=== PATIENT | male | born 1970 ===

== ENCOUNTER 2018-11-28 06:31 | Observation (INO) | payer OTHER ==
[2018-11-28] MEDS ORDERED: Sodium Chloride 0.9% 1,000 ML IV ONE (07:16)
--- NOTE | 2018-11-28 07:19 | C.PDOC ---
History Of Present Illness 48 year old male presents to ED with complaints of painful mass near his rectum for the past 3 days. Patient states he has history of similar abscess and has had surgical drainage twice before at other hospital. The most recent surgery was 08/04/18 at [facility]. He denies any fever or drainage, bloody stools, incontinence. Time Seen by Provider: 11/28/18 07:09 Chief Complaint (Nursing): Abnormal Skin Integrity History Per: Patient History/Exam Limitations: no limitations Onset/Duration Of Symptoms: Days Current Symptoms Are (Timing): Still Present Severity: Moderate Past Medical History Reviewed: Historical Data, Nursing Documentation, Vital Signs Vital Signs: Last Vital Signs Temp 97.5 F L 11/28/18 06:42 Pulse 98 H 11/28/18 06:42 Resp 20 11/28/18 06:42 BP 129/81 11/28/18 06:42 Pulse Ox 95 11/28/18 06:42 - Medical History PMH: Diabetes Other Surgeries: Recta abscess I&D in OR 08/04/18 Family History: States: No Known Family Hx - Social History Hx Alcohol Use: No Hx Substance Use: No - Immunization History Hx Tetanus Toxoid Vaccination: No Hx Influenza Vaccination: No Hx Pneumococcal Vaccination: No Review Of Systems Except As Marked, All Systems Reviewed And Found Negative. Constitutional: Negative for: Fever, Chills Gastrointestinal: Positive for: Other (rectal mass ). Negative for: Nausea, Vom iting, Abdominal Pain, Melena, Hematochezia Genitourinary: Positive for: Other Physical Exam - Physical Exam Appears: Non-toxic, No Acute Distress Skin: Normal Color, Warm, Dry Head: Atraumatic, Normacephalic Eye(s): bilateral: Normal Inspection Nose: Normal Oral Mucosa: Moist Neck: Supple Chest: Symmetrical Cardiovascular: Rhythm Regular Respiratory: Normal Breath Sounds, No Rales, No Rhonchi, No Wheezing Gastrointestinal/Abdominal: Normal Exam, Soft, No Tenderness, No Guarding, No Rebound Rectal: Mass (4x3 cm tender erythematous indurated mass to left side of perineum radiates towards scrotum) Male Genital: No Testicular Tenderness, No Testicular Swelling Extremity: Normal ROM Neurological/Psych: Oriented x3, Normal Speech ED Course And Treatment - Laboratory Results Result Diagrams: 11/28/18 07:57 11/28/18 07:57 O2 Sat by Pulse Oximetry: 95 (RA) Pulse Ox Interpretation: Normal - CT Scan/US CT-Pelvis Other Rad Studies (CT/US): Read By Radiologist, Radiology Report Reviewed CT/US Interpretation: Date of service: 11/28/2018. PROCEDURE: CT pelvis with contrast. HISTORY: perirectal mass, r.o abscess. COMPARISON: None available. TECHNIQUE: 2.5 mm contiguous axial sections were acquired through the pelvis following intravenous contrast administration. Sagittal and coronal images were reformatted from the axial scan. Contrast administered: 100 mL Visipaque 320. Total exam DLP: 392.70 mGy-cm. This CT exam was performed using 1 or more of the following dose reduction techniques: Automated exposure control, adjustment of the mA and/or kV according to patient size, and/or use of iterative reconstruction technique. FINDINGS: There is an ovoid low-attenuation collection in the right proximal medial thigh and right perineum, measuring approximately 0.9 x 3.2 x 1.9 cm. Consistent with abscess. There is adjacent cutaneous thickening. Posterior to this, in the perineum/proximal medial right thigh, there is focal induration without evidence of liquefaction, surrounded by some hazy increased attenuation of the subcutaneous fat, consistent with cellulitis. No evidence of alexsander abscess in this location, at the time of this examination. No evidence of alexsander perianal abscess. No other collection identified. Evaluation within the pelvis demonstrates the urinary bladder to be unremarkable in appearance. A normal prostate is identified. No abnormal bowel loops are appreciated. A normal appendix is identified. There is no pelvic lymphadenopathy identified. There is no ascites. IMPRESSION: Low-attenuation fluid collection in the proximal medial right thigh and right perineum, 0.9 x 3.2 x 1.9 cm. Consistent with abscess. Surrounding cellulitis. Posterior to this in the perineum/proximal medial right thigh, there is focal induration which has not yet liquified and is not consistent with a drainable collection. No alexsander perianal abscess. No other significant abnormality. Medical Decision Making Medical Decision Making: Impression: Rectal Mass Plan: * Labs * UA * CT - Pelv. * Toradol IV * IV Fluids Progress: CT shows: Low-attenuation fluid collection in the proximal medial right thigh and right perineum, 0.9 x 3.2 x 1.9 cm. Consistent with abscess. Surrounding cellulitis. Posterior to this in the perineum/proximal medial right thigh, there is focal induration which has not yet liquified and is not consistent with a drainable collection. No alexsander perianal abscess. 1026 Page certified surgical tech/first assistant 1029 resident manager calls back and to evaluate patient in the ED. 1130 Per certified surgical tech/first assistant Dr Lopez case reviewed with Dr Guardado. Requests Admit to Medicine. Going to OR 1133 Page hospitalist [address] Adkins to discuss case and accepted admission Disposition Counseled Patient/Family Regarding: Diagnosis, Need For Followup - Disposition Disposition: HOSPITALIZED Disposition Time: 11:39 Condition: STABLE - POA Present On Arrival: None - Clinical Impression Clinical Impression: Abscess of perineum - PA / PUNCH HAND / Resident Statement MD/DO has reviewed & agrees with the documentation as recorded. - Scribe Statement The provider has reviewed the documentation as recorded by the Scribe Erasto Mcfarlane Provider Attestation All medical record entries made by the Scribe were at my direction and personally dictated by me. I have reviewed the chart and agree that the record accurately reflects my personal performance of the history, physical exam, medical decision making, and the department course for this patient. I have also personally directed, reviewed, and agree with the discharge instructions and disposition. Decision To Admit - Pt Status Changed To: Hospital Disposition Of: Observation - . Bed Request Type: Regular Admitting Physician: Mustapha Adkins Patient Diagnosis: Abscess of perineum
[2018-11-28] MEDS ORDERED: Sodium Chloride 0.9% 1,000 ML ONE (07:47)
[2018-11-28 08:06] LABS: BASO # 0.1 K/uL (0.0-0.2); BASO % 0.7 % (0.0-2.0); EOS # 0.9 K/uL (0.0-0.7); EOS % 10.9 % (0.0-4.0); HEMOGLOBIN 14.8 g/dL (12.0-18.0); LYMPH # 2.2 K/uL (1.0-4.3); MEAN CELL VOLUME 83.4 fL (80.0-94.0); MEAN CORPUSCULAR HEMOGLOBIN 28.1 pg (27.0-31.0); MEAN CORPUSCULAR HGB CONC 33.7 g/dL (33.0-37.0); MEAN PLATELET VOLUME 7.6 fL (7.2-11.7); MONO # 1.1 K/uL (0.0-0.8); MONO % 12.7 % (0.0-10.0); NEUT # 4.3 K/uL (1.8-7.0); NEUT % 49.7 % (50.0-75.0); RBC 5.26 Mil/uL (4.40-5.90); RED CELL DISTRIBUTION WIDTH 13.6 % (11.5-14.5); WHITE BLOOD COUNT 8.6 K/uL (4.8-10.8)
[2018-11-28 08:24] LABS: ALB/GLOB RATIO 1.4 (1.0-2.1); ALBUMIN 3.9 g/dL (3.5-5.0); ALT/SGPT 24 U/L (21-72); AST/SGOT 22 U/L (17-59); BLOOD UREA NITROGEN 13 mg/dL (9-20); CALCIUM 8.8 mg/dl (8.6-10.4); GFR NON-AFRICAN AMERICAN > 60; LIPASE 56 U/L (23-300)
[2018-11-28] MEDS ORDERED: Iodixanol 320 MG/ML 100 ML BOTTLE IV ONE (08:40)
[2018-11-28 08:45] LABS: URINE BILIRUBIN NEGATIVE (NEGATIVE); URINE BLOOD NEGATIVE (NEGATIVE); URINE CLARITY Clear (Clear); URINE COLOR Yellow (YELLOW); URINE GLUCOSE (UA) NORMAL (Normal); URINE LEUKOCYTE ESTERASE NEG Leu/uL (Negative); URINE PROTEIN NEGATIVE (NEGATIVE); URINE UROBILINOGEN NORMAL mg/dL (0.2-1.0)
--- NOTE | 2018-11-28 10:19 | CT ---
Date of service: 11/28/2018 PROCEDURE: CT pelvis with contrast HISTORY: perirectal mass, r.o abscess COMPARISON: None available TECHNIQUE: 2.5 mm contiguous axial sections were acquired through the pelvis following intravenous contrast administration. Sagittal and coronal images were reformatted from the axial scan. Contrast administered: 100 mL Visipaque 320. Total exam DLP: 392.70 mGy-cm. This CT exam was performed using 1 or more of the following dose reduction techniques: Automated exposure control, adjustment of the mA and/or kV according to patient size, and/or use of iterative reconstruction technique. FINDINGS: There is an ovoid low-attenuation collection in the right proximal medial thigh and right perineum, measuring approximately 0.9 x 3.2 x 1.9 cm. Consistent with abscess. There is adjacent cutaneous thickening. Posterior to this, in the perineum/proximal medial right thigh, there is focal induration without evidence of liquefaction, surrounded by some hazy increased attenuation of the subcutaneous fat, consistent with cellulitis. No evidence of alexsander abscess in this location, at the time of this examination. No evidence of alexsander perianal abscess. No other collection identified. Evaluation within the pelvis demonstrates the urinary bladder to be unremarkable in appearance. A normal prostate is identified. No abnormal bowel loops are appreciated. A normal appendix is identified. There is no pelvic lymphadenopathy identified. There is no ascites. IMPRESSION: Low-attenuation fluid collection in the proximal medial right thigh and right perineum, 0.9 x 3.2 x 1.9 cm. Consistent with abscess. Surrounding cellulitis. Posterior to this in the perineum/proximal medial right thigh, there is focal induration which has not yet liquified and is not consistent with a drainable collection. No alexsander perianal abscess. No other significant abnormality.
[2018-11-28] MEDS ORDERED: Piperacillin/Tazobact 3.375 gm 100 ML IV STA (11:38)
[2018-11-28] MEDS ORDERED: Vancomycin 1 GM 1 GM/250 ML BAG IV STA (11:38)
--- NOTE | 2018-11-28 11:48 | CP.PCM.CON ---
<John Villafuerte D - Last Filed: 11/28/18 13:22> History of Present Illness - History of Present Illness History of Present Illness: SURGERY CONSULT NOTE FOR DR. VALLE Reason: Perianal abscess 48M presents to ED for pain in perineal region. Patient states it began 3 days ago. He also noticed a bump at the same site in the right perianal region. He denies any fevers, chills, denies abdominal pain, nausea, vomiting. He denies any blood in stool. He denies any drainage from site of abscess. He has had two abscesses in the past at the same site which he had drained in the OR at [facility]. Last time patient ate was last night. PMH: DM PSH: I&D perianal abscess*2 Social: denies tobacco, alcohol, and illicit drug use Allergies: NKDA Past Patient History - Past Social History Smoking Status: Unknown If Ever Smoked - CARDIAC Hx Cardiac Disorders: No - PULMONARY Hx Respiratory Disorders: No - NEUROLOGICAL Hx Neurological Disorder: No - HEENT Hx HEENT Problems: No - RENAL Hx Chronic Kidney Disease: No - ENDOCRINE/METABOLIC Hx Endocrine Disorders: No Hx Diabetes Mellitus Type 1: Yes - HEMATOLOGICAL/ONCOLOGICAL Hx Blood Disorders: No - INTEGUMENTARY Hx Dermatological Problems: No - MUSCULOSKELETAL/RHEUMATOLOGICAL Hx Musculoskeletal Disorders: No - GASTROINTESTINAL Hx Gastrointestinal Disorders: No - GENITOURINARY/GYNECOLOGICAL Hx Genitourinary Disorders: No - PSYCHIATRIC Hx Substance Use: No - SURGICAL HISTORY Hx Surgeries: Yes Other/Comment: CLARITA RECTAL ABCESS X 3 TIMES - ANESTHESIA Hx Anesthesia: Yes Hx Anesthesia Reactions: No Meds Allergies/Adverse Reactions: Allergies Allergy/AdvReac Type Severity Reaction Status Date / Time No Known Allergies Allergy Unverified 11/28/18 06:54 - Medications Medications: Current Medications Piperacillin Sod/Tazobactam Sod (Zosyn 3.375 In Ns 100ml) 100 mls @ 200 mls/hr IV STAT STA; Protocol Stop: 11/28/18 12:07 Vancomycin HCl (Vancomycin 1gm In Normal Saline Addvantage) 1 gm in 250 mls @ 166.667 mls/hr IV STAT STA; Protocol Stop: 11/28/18 13:07 Physical Exam - Constitutional Appears: Non-toxic, No Acute Distress - Respiratory Exam Respiratory Exam: Clear to Auscultation Bilateral, NORMAL BREATHING PATTERN - Cardiovascular Exam Cardiovascular Exam: REGULAR RHYTHM, +S1, +S2 - GI/Abdominal Exam GI & Abdominal Exam: Soft. absent: Distended, Firm, Guarding, Rebound, Rigid, Tenderness - Rectal Exam Rectal Exam: absent: Bloody Stool, Hemorrhoids, Fecal Impaction Additional comments: right medial buttock abscess - Extremities Exam Extremities exam: Negative for: pedal edema, tenderness - Neurological Exam Neurological exam: Alert, Oriented x3 - Psychiatric Exam Psychiatric exam: Normal Affect, Normal Mood - Skin Skin Exam: Dry, Intact, Normal Color, Warm Results - Vital Signs Recent Vital Signs: Last Vital Signs Temp 98.2 F 11/28/18 11:30 Pulse 65 11/28/18 11:30 Resp 18 11/28/18 11:30 BP 105/61 11/28/18 11:30 Pulse Ox 95 11/28/18 11:40 - Labs Result Diagrams: 11/28/18 07:57 11/28/18 07:57 Labs: Laboratory Results - last 24 hr 11/28/18 11/28/18 11/28/18 07:57 07:57 08:38 WBC 8.6 RBC 5.26 Hgb 14.8 Hct 43.9 MCV 83.4 MCH 28.1 MCHC 33.7 RDW 13.6 Plt Count 268 MPV 7.6 Neut % (Auto) 49.7 L Lymph % (Auto) 26.0 [place] % (Auto) 12.7 H Eos % (Auto) 10.9 H Baso % (Auto) 0.7 Neut # (Auto) 4.3 Lymph # (Auto) 2.2 [place] # (Auto) 1.1 H Eos # (Auto) 0.9 H Baso # (Auto) 0.1 Sodium 135 Potassium 4.1 Chloride 100 Carbon Dioxide 29 Anion Gap 10 BUN 13 Creatinine 0.8 Est GFR ( Amer) > 60 Est GFR (Non-Af Amer) > 60 Random Glucose 126 H Calcium 8.8 Total Bilirubin 0.6 AST 22 ALT 24 Alkaline Phosphatase 83 Total Protein 6.8 Albumin 3.9 Globulin 2.9 Albumin/Globulin Ratio 1.4 Lipase 56 Urine Color Yellow Urine Clarity Clear Urine pH 6.0 Ur Specific [place] 1.009 Urine Protein Negative Urine Glucose (UA) Normal Urine Ketones Negative Urine Blood Negative Urine Nitrate Negative Urine Bilirubin Negative Urine Urobilinogen Normal Ur Leukocyte Esterase Neg Urine WBC (Auto) < 1 Urine RBC (Auto) < 1 Assessment & Plan - Assessment and Plan (Free Text) Assessment: 48M with right medial buttock abscess Plan: NPO IVF Pain control Antibiotics Plan for OR today Discussed with Dr. Geo Villafuerte, PGY3 <David Guardado - Last Filed: 12/04/18 20:56> Results - Vital Signs Recent Vital Signs: Last Vital Signs Temp 97.9 F 12/01/18 15:00 Pulse 69 12/01/18 15:00 Resp 20 12/01/18 15:00 BP 109/66 12/01/18 15:00 Pulse Ox 95 12/01/18 15:00 - Labs Result Diagrams: 12/01/18 07:19 12/01/18 07:19 Attending/Attestation - Attestation I have personally seen and examined this patient.: Yes I have fully participated in the care of the patient.: Yes I have reviewed all pertinent clinical information: Yes Notes (Text): Pt was seen and examined at bedside Agree with above note and assessment Pt with Gluteal pain and absces Abdomen : Soft, ,NT, ND No peritoneal signs Gluteal abscess present Labs and radiology reviewed Ass: Gluteal abscess Plan: OR for I & D and Debridement IV antibiotics NPO, IVF Consent Plan d.w pt in detail Risk and benefit explained in detail.
[2018-11-28] MEDS ORDERED: Piperacillin/Tazobact 3.375 gm 100 ML IVPB ONE (11:49)
[2018-11-28] MEDS ORDERED: Vancomycin 1 GM 1 GM/250 ML BAG IVPB ONE (11:49)
--- NOTE | 2018-11-28 12:23 | CP.PCM.HP ---
<Janet Mchugh - Last Filed: 11/28/18 13:39> History of Present Illness - History of Present Illness History of Present Illness: PGY-1 Medicine H&P for Dr. Adkins's service CC: pain in the perineal region HPI: Patient is a 48 year old male w/ PMH of DM2 admitted to hospital for evaluation of buttock pain. Patient states it started 3 days ago and the pain worsened until he decided to come to hospital. Patient stated he took some medicine at home does not remember which offered slight relief. Patient describes the pain to be located from the anus extending through perinal region towards medial thigh, worsened with movement, alleviated by rest, described as burning in nature, with 8/10 on pain scale at worst. Patient states he has had 3 episodes total with most recent one in July 2018. Denies fevers, chills, chest pain, sob, n/v, constipation or diarrhea, and dysuria. Denies blood during cleaning or pain with defecation. 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, massage therapist Code- Full Code SERGEID- Courtney Present on Admission - Present on Admission Any Indicators Present on Admission: No Review of Systems - Review of Systems Review of Systems: 12 point ROS obtained and noted in HPI Past Patient History - Past Social History Smoking Status: Unknown If Ever Smoked - CARDIAC Hx Cardiac Disorders: No - PULMONARY Hx Respiratory Disorders: No - NEUROLOGICAL Hx Neurological Disorder: No - HEENT Hx HEENT Problems: No - RENAL Hx Chronic Kidney Disease: No - ENDOCRINE/METABOLIC Hx Endocrine Disorders: No Hx Diabetes Mellitus Type 1: Yes - HEMATOLOGICAL/ONCOLOGICAL Hx Blood Disorders: No - INTEGUMENTARY Hx Dermatological Problems: No - MUSCULOSKELETAL/RHEUMATOLOGICAL Hx Musculoskeletal Disorders: No - GASTROINTESTINAL Hx Gastrointestinal Disorders: No - GENITOURINARY/GYNECOLOGICAL Hx Genitourinary Disorders: No - PSYCHIATRIC Hx Substance Use: No - SURGICAL HISTORY Hx Surgeries: Yes Other/Comment: CLARITA RECTAL ABCESS X 3 TIMES - ANESTHESIA Hx Anesthesia: Yes Hx Anesthesia Reactions: No Meds Allergies/Adverse Reactions: Allergies Allergy/AdvReac Type Severity Reaction Status Date / Time No Known Allergies Allergy Unverified 11/28/18 06:54 Physical Exam - Constitutional Appears: Non-toxic, No Acute Distress - Head Exam Head Exam: NORMAL INSPECTION, NORMOCEPHALIC - Eye Exam Eye Exam: EOMI, Normal appearance. absent: Nystagmus, Scleral icterus - ENT Exam ENT Exam: Mucous Membranes Moist - Respiratory Exam Respiratory Exam: Clear to Auscultation Bilateral, NORMAL BREATHING PATTERN. absent: Decreased Breath Sounds, Rales, Rhonchi, Wheezes - Cardiovascular Exam Cardiovascular Exam: REGULAR RHYTHM, +S1, +S2. absent: Tachycardia - GI/Abdominal Exam GI & Abdominal Exam: Normal Bowel Sounds, Soft. absent: Diminished Bowel Sounds, Distended, Firm, Guarding, Tenderness - Rectal Exam Additional comments: indration noted near anus region extending down gluteal cleft towards right medial thigh no fluctuance appreciated no oozing or draining appreciated - Extremities Exam Extremities exam: Positive for: normal inspection. Negative for: calf tenderne ss, pedal edema - Neurological Exam Neurological exam: Alert, CN II-XII Intact, Oriented x3 - Psychiatric Exam Psychiatric exam: Normal Affect, Normal Mood - Skin Skin Exam: Dry, Intact, Normal Color Results - Vital Signs Recent Vital Signs: Last Vital Signs Temp 98.2 F 11/28/18 11:30 Pulse 65 11/28/18 11:30 Resp 18 11/28/18 11:30 BP 105/61 11/28/18 11:30 Pulse Ox 95 11/28/18 11:53 - Labs Result Diagrams: 11/28/18 07:57 11/28/18 07:57 Labs: Laboratory Results - last 24 hr 11/28/18 11/28/18 11/28/18 07:57 07:57 08:38 WBC 8.6 RBC 5.26 Hgb 14.8 Hct 43.9 MCV 83.4 MCH 28.1 MCHC 33.7 RDW 13.6 Plt Count 268 MPV 7.6 Neut % (Auto) 49.7 L Lymph % (Auto) 26.0 [place] % (Auto) 12.7 H Eos % (Auto) 10.9 H Baso % (Auto) 0.7 Neut # (Auto) 4.3 Lymph # (Auto) 2.2 [place] # (Auto) 1.1 H Eos # (Auto) 0.9 H Baso # (Auto) 0.1 Sodium 135 Potassium 4.1 Chloride 100 Carbon Dioxide 29 Anion Gap 10 BUN 13 Creatinine 0.8 Est GFR ( Amer) > 60 Est GFR (Non-Af Amer) > 60 Random Glucose 126 H Calcium 8.8 Total Bilirubin 0.6 AST 22 ALT 24 Alkaline Phosphatase 83 Total Protein 6.8 Albumin 3.9 Globulin 2.9 Albumin/Globulin Ratio 1.4 Lipase 56 Urine Color Yellow Urine Clarity Clear Urine pH 6.0 Ur Specific [place] 1.009 Urine Protein Negative Urine Glucose (UA) Normal Urine Ketones Negative Urine Blood Negative Urine Nitrate Negative Urine Bilirubin Negative Urine Urobilinogen Normal Ur Leukocyte Esterase Neg Urine WBC (Auto) < 1 Urine RBC (Auto) < 1 Assessment & Plan - Assessment and Plan (Free Text) Assessment: Patient is a 48 year old male w/PMH of DM2 admitted for perineal pain. Pelvis CT showed fluid collection in the proximal medial right thigh and right perineum. Surgery was consulted for possible drainage. Right perineum abscess Surgery Consulted: Dr. Guardado Pelvis CT- fluid collection in the proximal medial right thigh and right perineum. consistent with abscess Zosyn 3.3.75g q6h Vanc 1gm q12h NPO for possible intervention with surgery I&D DM2 ISS ACHS Hypoglycemic protocol GI ppx: Florastor 250mg po bid DVT ppx: heparin 5000 units sc PGY-1 [facility] Medical Management d/w Dr. Adkins <Mustapha Adkins H - Last Filed: 11/28/18 14:11> Results - Vital Signs Recent Vital Signs: Last Vital Signs Temp 97.6 F 11/28/18 13:14 Pulse 66 11/28/18 13:14 Resp 20 11/28/18 13:14 BP 102/63 11/28/18 13:14 Pulse Ox 95 11/28/18 13:14 - Labs Result Diagrams: 11/28/18 07:57 11/28/18 07:57 Labs: Laboratory Results - last 24 hr 11/28/18 11/28/18 11/28/18 07:57 07:57 08:38 WBC 8.6 RBC 5.26 Hgb 14.8 Hct 43.9 MCV 83.4 MCH 28.1 MCHC 33.7 RDW 13.6 Plt Count 268 MPV 7.6 Neut % (Auto) 49.7 L Lymph % (Auto) 26.0 [place] % (Auto) 12.7 H Eos % (Auto) 10.9 H Baso % (Auto) 0.7 Neut # (Auto) 4.3 Lymph # (Auto) 2.2 [place] # (Auto) 1.1 H Eos # (Auto) 0.9 H Baso # (Auto) 0.1 Sodium 135 Potassium 4.1 Chloride 100 Carbon Dioxide 29 Anion Gap 10 BUN 13 Creatinine 0.8 Est GFR ( Amer) > 60 Est GFR (Non-Af Amer) > 60 Random Glucose 126 H Calcium 8.8 Total Bilirubin 0.6 AST 22 ALT 24 Alkaline Phosphatase 83 Total Protein 6.8 Albumin 3.9 Globulin 2.9 Albumin/Globulin Ratio 1.4 Lipase 56 Urine Color Yellow Urine Clarity Clear Urine pH 6.0 Ur Specific [place] 1.009 Urine Protein Negative Urine Glucose (UA) Normal Urine Ketones Negative Urine Blood Negative Urine Nitrate Negative Urine Bilirubin Negative Urine Urobilinogen Normal Ur Leukocyte Esterase Neg Urine WBC (Auto) < 1 Urine RBC (Auto) < 1 Attending/Attestation - Attestation I have personally seen and examined this patient.: Yes I have fully participated in the care of the patient.: Yes I have reviewed all pertinent clinical information: Yes Notes (Text): 11/28/18 14:09 Medical attending: Patient was seen and examined by me. Reviewed the above note by the resident and agree with the above note by resident We saw the patient together Currently lab work is stable, he denies fevers or chills As mentioned previously the patient has had similar episodes like this From what I understand surgery is considering taking him to the OR later this afternoon the patient is currently NPO for the time being Mustapha Adkins
[2018-11-28] MEDS ORDERED: Glucagon Recombinant 1 mg Inj IM PRN (13:38)
[2018-11-28] MEDS ORDERED: Dextrose 50% SYRINGE Inj (50 ml) IV PRN (13:38)
[2018-11-28] MEDS ORDERED: Lidocaine/Epinephrine 1% 1:100000 10 ML IJ ONE (14:18)
[2018-11-28] MEDS ORDERED: Bupivacaine 0.25% 20 ML INJ IJ ONE (14:18)
[2018-11-28] MEDS ORDERED: Propofol 10 mg/ml Inj (20 ML) ONE (14:21)
[2018-11-28] MEDS ORDERED: Midazolam 2 MG/2 ML VIAL ONE (14:21)
[2018-11-28] MEDS ORDERED: Lidocaine Hydrochloride 5 ML INJ ONE (14:43)
--- NOTE | 2018-11-28 14:50 | PCM.SURG1 ---
Surgeon's Initial Post Op Note - Surgeon's Notes Surgeon: MD [facility] Prom[employer] Coordinator: Christo PGY3 Pre-Operative Diagnosis: Right buttock abscess Operative Findings: right buttock abscess Post-Operative Diagnosis: Right buttock abscess Operation Performed: Incision and drainage of right buttock abscess Specimen/Specimens Removed: culture Estimated Blood Loss: EBL {In ML}: 2 Date of Surgery/Procedure: 11/28/18 Time of Surgery/Procedure: 14:50
[2018-11-28] MEDS ORDERED: HYDROmorphone 0.5 mg/0.5 ml ISec IVP PRN (14:54)
[2018-11-28] MEDS: Oxycodone/Acetaminophen 5/325 mg Tab PO PRN (17:42)
[2018-11-28] MEDS: (Novolin R) Insulin Human Regular 100 units/ml vial SC SCH ×2 (17:47→22:45)
[2018-11-28] MEDS: Piperacill/Tazo 3.375gm in Dex 3.375 GM/50 ML BAG IVPB SCH (17:47)
[2018-11-28] MEDS: Saccharomyces Boulardi 250 mg Cap PO SCH (17:52)
[2018-11-29] MEDS: Oxycodone/Acetaminophen 5/325 mg Tab PO PRN ×3 (00:23→15:35)
[2018-11-29] MEDS: Piperacill/Tazo 3.375gm in Dex 3.375 GM/50 ML BAG IVPB SCH ×4 (00:27→18:05)
--- NOTE | 2018-11-29 01:33 | OP ---
PROCEDURE DATE: 11/28/2018 PREOPERATIVE DIAGNOSES: 1. Right perianal gluteal abscess. 2. Perianal cellulitis. POSTOPERATIVE DIAGNOSES: 1. Right gluteal abscess. 2. Perianal cellulitis. PROCEDURES DONE: 1. Incision and drainage of right gluteal abscess. 2. Excisional debridement of the right gluteal abscess cavity wound approximately 4 x 3 x 4 cm size. ANESTHESIA: Local anesthesia plus sedation. ESTIMATED BLOOD LOSS: Around 10 mL. DRAINS: None. PATHOLOGY: The pus was sent for the culture and sensitivity. COMPLICATIONS: None. INTRAOPERATIVE FINDINGS: The patient had right gluteal abscess, it was extending to mid gluteal area and the patient also had surrounding cellulitis. DESCRIPTION OF PROCEDURE: On intraoperative steps, this is a 48-year-old male who was diagnosed with right perianal gluteal area cellulitis with abscess, and the patient was consented for the incision and drainage. The patient was brought to the OR, placed supine on the operating table. After induction of the sedation, the patient was placed in right lateral position. The perianal area was prepped and draped in usual sterile fashion, and local anesthesia was injected. The incision was made on the fluctuant part of the abscess cavity, and abscess cavity was entered. Abscess cavity was extending into the gluteal region, and cavity was completely debrided and irrigated. Hemostasis was achieved and packed with iodoform packing. The excisional debridement of the wall was done with blunt and sharp dissection and after proper hemostasis, dry sterile dressing was applied. The patient tolerated the procedure well. Count of instrument and gauze was correct. There was no apparent complication. David Guardado MD
[2018-11-29 07:45] LABS: BASO % 0.4 % (0.0-2.0); EOS # 0.7 K/uL (0.0-0.7); EOS % 6.1 % (0.0-4.0); HEMOGLOBIN 15.3 g/dL (12.0-18.0); LYMPH # 2.2 K/uL (1.0-4.3); LYMPH % 18.9 % (20.0-40.0); MEAN CELL VOLUME 83.5 fL (80.0-94.0); MEAN CORPUSCULAR HEMOGLOBIN 28.3 pg (27.0-31.0); MEAN CORPUSCULAR HGB CONC 33.9 g/dL (33.0-37.0); MONO # 1.2 K/uL (0.0-0.8); MONO % 10.2 % (0.0-10.0); NEUT # 7.5 K/uL (1.8-7.0); NEUT % 64.4 % (50.0-75.0); RBC 5.39 Mil/uL (4.40-5.90); RED CELL DISTRIBUTION WIDTH 13.9 % (11.5-14.5); WHITE BLOOD COUNT 11.6 K/uL (4.8-10.8)
[2018-11-29] MEDS: (Novolin R) Insulin Human Regular 100 units/ml vial SC SCH ×4 (07:56→21:31)
[2018-11-29 08:22] LABS: ALB/GLOB RATIO 1.4 (1.0-2.1); ALBUMIN 4.1 g/dL (3.5-5.0); ALT/SGPT 25 U/L (21-72); AST/SGOT 23 U/L (17-59); BLOOD UREA NITROGEN 13 mg/dL (9-20); CALCIUM 8.8 mg/dl (8.6-10.4); GFR NON-AFRICAN AMERICAN > 60
[2018-11-29] MEDS: Saccharomyces Boulardi 250 mg Cap PO SCH ×2 (10:17→18:06)
--- NOTE | 2018-11-29 10:18 | CP.PCM.PN ---
<John Villafuerte D - Last Filed: 11/29/18 10:15> Subjective - Date & Time of Evaluation Date of Evaluation: 11/29/18 Time of Evaluation: 10:15 - Subjective Subjective: SURGERY NOTE FOR DR. GUARDADO 48M seen and examined at bedside. Patient admits to tenderness controlled with medication. Tolerating diet. Objective - Vital Signs/Intake and Output Vital Signs (last 24 hours): Temp Pulse Resp BP Pulse Ox 98.5 F 83 20 113/61 96 11/29/18 07:48 11/29/18 07:48 11/29/18 07:48 11/29/18 07:48 11/29/18 07:48 Intake and Output: 11/29/18 11/29/18 06:59 18:59 Intake Total 1100 220 Output Total 1000 Balance 1100 -780 - Medications Medications: Current Medications Dextrose (Dextrose 50% Inj) 0 ml IV STAT PRN; Protocol PRN Reason: Hypoglycemia Protocol Dextrose (Glutose 15) 0 gm PO ONCE PRN; Protocol PRN Reason: Hypoglycemia Protocol Glucagon (Glucagen Diagnostic Kit) 0 mg IM STAT PRN; Protocol PRN Reason: Hypoglycemia Protocol Heparin Sodium (Porcine) (Heparin) 5,000 units SC Q12H CHEN Last Admin: 11/28/18 13:36 Dose: Not Given Piperacillin Sod/Tazobactam Sod (Zosyn 3.375 Gm Iv Premix) 3.375 gm in 50 mls @ 100 mls/hr IVPB Q6H CHEN; Protocol Last Admin: 11/29/18 05:54 Dose: 100 mls/hr Vancomycin HCl 1 gm/ Sodium (Chloride) 250 mls @ 166.7 mls/hr IVPB 1200 CHEN; Protocol Dextrose (Dextrose 5% In Water 1000 Ml) 1,000 mls @ 0 mls/hr IV .Q0M PRN; Protocol PRN Reason: Hypoglycemia Protocol Insulin Human Regular (Novolin R) 0 unit SC ACHS CHEN; Protocol Last Admin: 11/29/18 07:56 Dose: 2 units Oxycodone/Acetaminophen (Percocet 5/325 Mg Tab) 1 tab PO Q4H PRN PRN Reason: Pain, moderate (4-7) Stop: 12/01/18 17:18 Last Admin: 11/29/18 06:03 Dose: 1 tab Saccharomyces Boulardii (Florastor) 250 mg PO BID CHEN Last Admin: 11/28/18 17:52 Dose: 250 mg - Labs Labs: 11/29/18 07:31 11/29/18 07:31 - Constitutional Appears: Non-toxic, No Acute Distress - Respiratory Exam Respiratory Exam: Clear to Ausculation Bilateral, NORMAL BREATHING PATTERN - Cardiovascular Exam Cardiovascular Exam: REGULAR RHYTHM, +S1, +S2 - GI/Abdominal Exam GI & Abdominal Exam: Soft. absent: Distended, Firm, Guarding, Rigid, Tenderness, Rebound - Rectal Exam Additional comments: incision and drainage site have packing in place, minimal drainage. Mild tenderness - Extremities Exam Extremities Exam: absent: Pedal Edema, Tenderness - Neurological Exam Neurological Exam: Alert, Awake - Skin Skin Exam: Dry, Intact, Normal Color, Warm Assessment and Plan - Assessment and Plan (Free Text) Assessment: 48M s/p incision and drainage of right gluteal abscess POD#1 Plan: - Daily dressing changes - no further surgical intervention - Further recs discuss with Dr. Geo Villafuerte, PGY3 <David Guardado - Last Filed: 12/04/18 20:58> Objective - Vital Signs/Intake and Output Vital Signs (last 24 hours): Temp Pulse Resp BP Pulse Ox 97.9 F 69 20 109/66 95 12/01/18 15:00 12/01/18 15:00 12/01/18 15:00 12/01/18 15:00 12/01/18 15:00 - Labs Labs: 12/01/18 07:19 12/01/18 07:19 Attending/Attestation - Attestation I have personally seen and examined this patient.: Yes I have fully participated in the care of the patient.: Yes I have reviewed all pertinent clinical information, including history, physical exam and plan: Yes Notes (Text): Pt was seen and examined at bedside Agree with above note and assessment Pt is improving clinically Mild cellulitis present C/w IV antibiotics c.w current mx Local wound care Plan d.w pt in detail
[2018-11-29] MEDS ORDERED: Lidocaine 1%/Epinephrine 1:100000 30 ml vial IJ ONE (15:10)
--- NOTE | 2018-11-29 17:43 | CP.PCM.PN ---
Subjective - Date & Time of Evaluation Date of Evaluation: 11/29/18 Time of Evaluation: 17:32 - Subjective Subjective: PGY-1 Medicine Progress Note for Dr. Jewell's service S/E at bedside. Offers pain at site of I&D. Was having to much pain during teaching of how to repack. Denies fevers, chills, chest pain, sob, n/v, constipation or diarrhea, and dysuria. Objective - Vital Signs/Intake and Output Vital Signs (last 24 hours): Temp Pulse Resp BP Pulse Ox 99.1 F 90 95 H 120/66 96 11/29/18 16:00 11/29/18 16:00 11/29/18 16:00 11/29/18 16:00 11/29/18 07:48 Intake and Output: 11/29/18 11/29/18 06:59 18:59 Intake Total 1100 1220 Output Total 1000 Balance 1100 220 - Medications Medications: Current Medications Dextrose (Dextrose 50% Inj) 0 ml IV STAT PRN; Protocol PRN Reason: Hypoglycemia Protocol Dextrose (Glutose 15) 0 gm PO ONCE PRN; Protocol PRN Reason: Hypoglycemia Protocol Glucagon (Glucagen Diagnostic Kit) 0 mg IM STAT PRN; Protocol PRN Reason: Hypoglycemia Protocol Heparin Sodium (Porcine) (Heparin) 5,000 units SC Q12H CHEN Last Admin: 11/28/18 13:36 Dose: Not Given Piperacillin Sod/Tazobactam Sod (Zosyn 3.375 Gm Iv Premix) 3.375 gm in 50 mls @ 100 mls/hr IVPB Q6H CHEN; Protocol Last Admin: 11/29/18 11:43 Dose: 100 mls/hr Vancomycin HCl 1 gm/ Sodium (Chloride) 250 mls @ 166.7 mls/hr IVPB 1200 CHEN; Protocol Last Admin: 11/29/18 11:39 Dose: 166.7 mls/hr Dextrose (Dextrose 5% In Water 1000 Ml) 1,000 mls @ 0 mls/hr IV .Q0M PRN; Protocol PRN Reason: Hypoglycemia Protocol Influenza Virus Vaccine (Flucelvax Quad [id number] Syr) 60 mcg IM .ONCE ONE Stop: 11/30/18 10:01 Insulin Human Regular (Novolin R) 0 unit SC ACHS CHEN; Protocol Last Admin: 11/29/18 11:32 Dose: Not Given Oxycodone/Acetaminophen (Percocet 5/325 Mg Tab) 1 tab PO Q4H PRN PRN Reason: Pain, moderate (4-7) Stop: 12/01/18 17:18 Last Admin: 11/29/18 06:03 Dose: 1 tab Pneumococcal Polyvalent Vaccine (Pneumovax 23 Vaccine) 0.5 ml IM .ONCE ONE Stop: 11/30/18 10:01 Saccharomyces Boulardii (Florastor) 250 mg PO BID CHEN Last Admin: 11/29/18 10:17 Dose: 250 mg - Labs Labs: 11/29/18 07:31 11/29/18 07:31 - Constitutional Appears: Non-toxic, No Acute Distress - Head Exam Head Exam: NORMAL INSPECTION, NORMOCEPHALIC - Eye Exam Eye Exam: EOMI, Normal appearance. absent: Nystagmus, Scleral icterus - ENT Exam ENT Exam: Mucous Membranes Moist - Respiratory Exam Respiratory Exam: Clear to Ausculation Bilateral, NORMAL BREATHING PATTERN. absent: Decreased Breath Sounds, Rales, Rhonchi, Wheezes - Cardiovascular Exam Cardiovascular Exam: REGULAR RHYTHM, +S1, +S2. absent: Tachycardia - GI/Abdominal Exam GI & Abdominal Exam: Soft, Normal Bowel Sounds. absent: Distended, Firm, Guarding, Rigid, Tenderness - Exam Additional comments: s/p I&D with packing as per surgery minimal erythema noted no oozing or pus appreciated - Extremities Exam Extremities Exam: Normal Inspection. absent: Calf Tenderness, Pedal Edema - Neurological Exam Neurological Exam: Alert, Awake, Oriented x3 Assessment and Plan - Assessment and Plan (Free Text) Assessment: Patient is a 48 year old male w/PMH of DM2 admitted for perineal pain. Pelvis CT showed fluid collection in the proximal medial right thigh and right perineum. Surgery was consulted for possible drainage. Right perineum abscess Surgery Consulted: Dr. Guardado Pelvis CT- fluid collection in the proximal medial right thigh and right perineum. consistent with abscess Zosyn 3.3.75g q6h Vanc 1gm q12h NPO for possible intervention with surgery I&D Oxycodone 1 tab po q4h prn for pain control DM2 ISS ACHS Hypoglycemic protocol GI ppx: Florastor 250mg po bid DVT ppx: heparin 5000 units sc Disposition: Likely d/c in AM with education how to pack w/ followup at Dr. Guardado PGY-1 [facility] Medical Management d/w Dr. Jewell
[2018-11-30] MEDS: Piperacill/Tazo 3.375gm in Dex 3.375 GM/50 ML BAG IVPB SCH ×5 (00:19→23:52)
[2018-11-30 01:43] VITALS: RESP 20
--- NOTE | 2018-11-30 07:41 | CP.PCM.PN ---
<Jovon Avila M - Last Filed: 11/30/18 15:16> Subjective - Date & Time of Evaluation Date of Evaluation: 11/30/18 Time of Evaluation: 07:15 - Subjective Subjective: Surgery progress note for Dr. Guardado Patient seen and examined at bedside. No overnight events reported. Patient states he still has pain in the I&D location. Patient had packing change yesterday that was painful. Patient offers no other complaints. Objective - Vital Signs/Intake and Output Vital Signs (last 24 hours): Temp Pulse Resp BP Pulse Ox 99.0 F 90 20 105/67 96 11/30/18 00:00 11/30/18 00:00 11/30/18 00:00 11/30/18 00:00 11/30/18 00:00 Intake and Output: 11/30/18 11/30/18 06:59 18:59 Intake Total 300 Balance 300 - Medications Medications: Current Medications Dextrose (Dextrose 50% Inj) 0 ml IV STAT PRN; Protocol PRN Reason: Hypoglycemia Protocol Dextrose (Glutose 15) 0 gm PO ONCE PRN; Protocol PRN Reason: Hypoglycemia Protocol Glucagon (Glucagen Diagnostic Kit) 0 mg IM STAT PRN; Protocol PRN Reason: Hypoglycemia Protocol Heparin Sodium (Porcine) (Heparin) 5,000 units SC Q12H CHEN Last Admin: 11/28/18 13:36 Dose: Not Given Piperacillin Sod/Tazobactam Sod (Zosyn 3.375 Gm Iv Premix) 3.375 gm in 50 mls @ 100 mls/hr IVPB Q6H CHEN; Protocol Last Admin: 11/30/18 05:41 Dose: 100 mls/hr Vancomycin HCl 1 gm/ Sodium (Chloride) 250 mls @ 166.7 mls/hr IVPB 1200 CHEN; Protocol Last Admin: 11/29/18 11:39 Dose: 166.7 mls/hr Dextrose (Dextrose 5% In Water 1000 Ml) 1,000 mls @ 0 mls/hr IV .Q0M PRN; Protocol PRN Reason: Hypoglycemia Protocol Influenza Virus Vaccine (Flucelvax Quad [id number] Syr) 60 mcg IM .ONCE ONE Stop: 11/30/18 10:01 Insulin Human Regular (Novolin R) 0 unit SC ACHS CHEN; Protocol Last Admin: 11/29/18 21:31 Dose: Not Given Oxycodone/Acetaminophen (Percocet 5/325 Mg Tab) 1 tab PO Q4H PRN PRN Reason: Pain, moderate (4-7) Stop: 12/01/18 17:18 Last Admin: 11/29/18 15:35 Dose: 1 tab Pneumococcal Polyvalent Vaccine (Pneumovax 23 Vaccine) 0.5 ml IM .ONCE ONE Stop: 11/30/18 10:01 Saccharomyces Boulardii (Florastor) 250 mg PO BID CHEN Last Admin: 11/29/18 18:06 Dose: 250 mg - Labs Labs: 11/29/18 07:31 11/29/18 07:31 - Constitutional Appears: No Acute Distress - Head Exam Head Exam: NORMAL INSPECTION - Eye Exam Eye Exam: Normal appearance - ENT Exam ENT Exam: Mucous Membranes Moist - Respiratory Exam Respiratory Exam: NORMAL BREATHING PATTERN - GI/Abdominal Exam GI & Abdominal Exam: Soft, Normal Bowel Sounds. absent: Guarding, Rigid - Rectal Exam Additional comments: 1cm incision site s/p I&D of abscess No drainage Packing in place - Extremities Exam Extremities Exam: absent: Pedal Edema - Neurological Exam Neurological Exam: Alert, Awake - Psychiatric Exam Psychiatric exam: Normal Affect, Normal Mood Assessment and Plan - Assessment and Plan (Free Text) Assessment: 48M s/p incision and drainage of right gluteal abscess POD#2 Plan: - Daily dressing changes - continue warm compresses, until flatulence - continue Abx - Further recs discuss with Dr. Geo Avila, PGY1 <David uGardado - Last Filed: 12/04/18 20:58> Objective - Vital Signs/Intake and Output Vital Signs (last 24 hours): Temp Pulse Resp BP Pulse Ox 97.9 F 69 20 109/66 95 12/01/18 15:00 12/01/18 15:00 12/01/18 15:00 12/01/18 15:00 12/01/18 15:00 - Labs Labs: 12/01/18 07:19 12/01/18 07:19 Attending/Attestation - Attestation I have personally seen and examined this patient.: Yes I have fully participated in the care of the patient.: Yes I have reviewed all pertinent clinical information, including history, physical exam and plan: Yes Notes (Text): Pt was seen and examined at bedside Agree with above note and assessment Pt is improving clinically C/w IV antibiotics Local wound care DC plan Plan d.w pt in detail .
[2018-11-30 07:45] LABS: BASO # 0.1 K/uL (0.0-0.2); BASO % 0.9 % (0.0-2.0); EOS # 0.8 K/uL (0.0-0.7); EOS % 10.3 % (0.0-4.0); HEMOGLOBIN 15.8 g/dL (12.0-18.0); LYMPH # 2.7 K/uL (1.0-4.3); LYMPH % 33.7 % (20.0-40.0); MEAN CORPUSCULAR HEMOGLOBIN 28.3 pg (27.0-31.0); MEAN CORPUSCULAR HGB CONC 34.2 g/dL (33.0-37.0); MEAN PLATELET VOLUME 7.7 fL (7.2-11.7); MONO % 12.2 % (0.0-10.0); NEUT # 3.5 K/uL (1.8-7.0); NEUT % 42.9 % (50.0-75.0); NRBC % 0.1 % (0.0-2.0); RBC 5.57 Mil/uL (4.40-5.90); RED CELL DISTRIBUTION WIDTH 13.6 % (11.5-14.5); WHITE BLOOD COUNT 8.1 K/uL (4.8-10.8)
[2018-11-30 08:01] LABS: ALB/GLOB RATIO 1.3 (1.0-2.1); ALBUMIN 4.2 g/dL (3.5-5.0); ALT/SGPT 22 U/L (21-72); AST/SGOT 18 U/L (17-59); BLOOD UREA NITROGEN 14 mg/dL (9-20); CALCIUM 9.4 mg/dl (8.6-10.4); GFR NON-AFRICAN AMERICAN > 60
[2018-11-30] MEDS: Saccharomyces Boulardi 250 mg Cap PO SCH ×2 (09:20→17:39)
[2018-11-30] MEDS: (Novolin R) Insulin Human Regular 100 units/ml vial SC SCH ×4 (09:21→21:11)
[2018-11-30] MEDS ORDERED: Pneumococcal 23-Valent Vaccine IM ONE (10:00)
[2018-11-30] MEDS ORDERED: Influenza Vaccine 60 mcg/0.5 mL SYR (4YR UP) IM ONE (10:00)
--- NOTE | 2018-11-30 12:51 | CP.PCM.PN ---
Subjective - Date & Time of Evaluation Date of Evaluation: 11/30/18 Time of Evaluation: 12:44 - Subjective Subjective: PGY-1 Medicine Progress Note for Dr. Adkins's service S/E at bedside. Offers moderate pain with sitting and pain with walking. Denies fevers, chills, chest pain, sob, n/v, constipation or diarrhea, and dysuria. Objective - Vital Signs/Intake and Output Vital Signs (last 24 hours): Temp Pulse Resp BP Pulse Ox 97.7 F 62 20 95/56 L 95 11/30/18 08:00 11/30/18 08:00 11/30/18 08:00 11/30/18 08:00 11/30/18 08:00 Intake and Output: 11/30/18 11/30/18 06:59 18:59 Intake Total 300 Balance 300 - Medications Medications: Current Medications Dextrose (Dextrose 50% Inj) 0 ml IV STAT PRN; Protocol PRN Reason: Hypoglycemia Protocol Dextrose (Glutose 15) 0 gm PO ONCE PRN; Protocol PRN Reason: Hypoglycemia Protocol Glucagon (Glucagen Diagnostic Kit) 0 mg IM STAT PRN; Protocol PRN Reason: Hypoglycemia Protocol Heparin Sodium (Porcine) (Heparin) 5,000 units SC Q12H CHEN Last Admin: 11/28/18 13:36 Dose: Not Given Piperacillin Sod/Tazobactam Sod (Zosyn 3.375 Gm Iv Premix) 3.375 gm in 50 mls @ 100 mls/hr IVPB Q6H CHEN; Protocol Last Admin: 11/30/18 05:41 Dose: 100 mls/hr Vancomycin HCl 1 gm/ Sodium (Chloride) 250 mls @ 166.7 mls/hr IVPB 1200 CHEN; Protocol Last Admin: 11/29/18 11:39 Dose: 166.7 mls/hr Dextrose (Dextrose 5% In Water 1000 Ml) 1,000 mls @ 0 mls/hr IV .Q0M PRN; Protocol PRN Reason: Hypoglycemia Protocol Insulin Human Regular (Novolin R) 0 unit SC ACHS CHEN; Protocol Last Admin: 11/30/18 12:07 Dose: Not Given Oxycodone/Acetaminophen (Percocet 5/325 Mg Tab) 1 tab PO Q4H PRN PRN Reason: Pain, moderate (4-7) Stop: 12/01/18 17:18 Last Admin: 11/29/18 15:35 Dose: 1 tab Saccharomyces Siridii (Florastor) 250 mg PO BID CHEN Last Admin: 11/30/18 09:20 Dose: Not Given - Labs Labs: 11/30/18 07:35 11/30/18 07:35 - Additional Findings Additional findings: - Constitutional Appears: Non-toxic, No Acute Distress - Head Exam Head Exam: NORMAL INSPECTION, NORMOCEPHALIC - Eye Exam Eye Exam: EOMI, Normal appearance. absent: Nystagmus, Scleral icterus - ENT Exam ENT Exam: Mucous Membranes Moist - Respiratory Exam Respiratory Exam: Clear to Ausculation Bilateral, NORMAL BREATHING PATTERN. absent: Decreased Breath Sounds, Rales, Rhonchi, Wheezes - Cardiovascular Exam Cardiovascular Exam: REGULAR RHYTHM, +S1, +S2. absent: Tachycardia - GI/Abdominal Exam GI & Abdominal Exam: Soft, Normal Bowel Sounds. absent: Distended, Firm, Guarding, Rigid, Tenderness - Exam Additional comments: s/p I&D with packing as per surgery minimal erythema noted no oozing or pus appreciated - Extremities Exam Extremities Exam: Normal Inspection. absent: Calf Tenderness, Pedal Edema - Neurological Exam Neurological Exam: Alert, Awake, Oriented x3 Assessment and Plan - Assessment and Plan (Free Text) Assessment: Patient is a 48 year old male w/PMH of DM2 admitted for perineal pain. Pelvis CT showed fluid collection in the proximal medial right thigh and right perineum. Surgery was consulted for possible drainage. Right perineum abscess Surgery Consulted: Dr. Guardado Pelvis CT- fluid collection in the proximal medial right thigh and right perineum. consistent with abscess s/p I&D drainage at bedside Zosyn 3.3.75g q6h Vanc 1gm q12h Oxycodone 1 tab po q4h prn for pain control DM2 ISS ACHS Hypoglycemic protocol GI ppx: Florastor 250mg po bid DVT ppx: heparin 5000 units sc Disposition: Likely d/c in tom with education for how to repack with PGY-1 [facility] d/w Dr. Adkins
[2018-12-01] MEDS: Piperacill/Tazo 3.375gm in Dex 3.375 GM/50 ML BAG IVPB SCH ×2 (05:19→11:18)
[2018-12-01 07:32] LABS: BASO # 0.1 K/uL (0.0-0.2); BASO % 0.8 % (0.0-2.0); EOS # 0.7 K/uL (0.0-0.7); EOS % 8.8 % (0.0-4.0); HEMOGLOBIN 16.2 g/dL (12.0-18.0); LYMPH # 2.4 K/uL (1.0-4.3); LYMPH % 29.9 % (20.0-40.0); MEAN CELL VOLUME 83.2 fL (80.0-94.0); MEAN CORPUSCULAR HEMOGLOBIN 28.4 pg (27.0-31.0); MEAN CORPUSCULAR HGB CONC 34.2 g/dL (33.0-37.0); MEAN PLATELET VOLUME 7.7 fL (7.2-11.7); MONO # 0.9 K/uL (0.0-0.8); MONO % 11.4 % (0.0-10.0); NEUT # 3.9 K/uL (1.8-7.0); NEUT % 49.1 % (50.0-75.0); RBC 5.68 Mil/uL (4.40-5.90); RED CELL DISTRIBUTION WIDTH 13.5 % (11.5-14.5)
[2018-12-01 07:51] VITALS: O2SAT 95
[2018-12-01 07:54] LABS: ALB/GLOB RATIO 1.3 (1.0-2.1); ALBUMIN 4.3 g/dL (3.5-5.0); ALT/SGPT 19 U/L (21-72); AST/SGOT 27 U/L (17-59); BLOOD UREA NITROGEN 18 mg/dL (9-20); CALCIUM 9.3 mg/dl (8.6-10.4); GFR NON-AFRICAN AMERICAN > 60
--- NOTE | 2018-12-01 08:03 | CP.PCM.PN ---
<Jovon Avila M - Last Filed: 12/01/18 12:04> Subjective - Date & Time of Evaluation Date of Evaluation: 12/01/18 Time of Evaluation: 07:00 - Subjective Subjective: Surgery progress note for Dr. Guardado. Patient seen and examined at bedside. No overnight events reported. Patient is I&D post op day # 3 for perianal abscess. Patient had packing change yesterday and stated pain was much improved. Patient denies f/c, abd pain, n/v, chest pain, SOB. Objective - Vital Signs/Intake and Output Vital Signs (last 24 hours): Temp Pulse Resp BP Pulse Ox 97.9 F 60 20 99/62 L 94 L 11/30/18 23:25 11/30/18 23:25 11/30/18 23:25 11/30/18 23:25 11/30/18 23:25 Intake and Output: 12/01/18 12/01/18 06:59 18:59 Intake Total 760 Balance 760 - Medications Medications: Current Medications Dextrose (Dextrose 50% Inj) 0 ml IV STAT PRN; Protocol PRN Reason: Hypoglycemia Protocol Dextrose (Glutose 15) 0 gm PO ONCE PRN; Protocol PRN Reason: Hypoglycemia Protocol Glucagon (Glucagen Diagnostic Kit) 0 mg IM STAT PRN; Protocol PRN Reason: Hypoglycemia Protocol Heparin Sodium (Porcine) (Heparin) 5,000 units SC Q12H CHEN Last Admin: 11/28/18 13:36 Dose: Not Given Piperacillin Sod/Tazobactam Sod (Zosyn 3.375 Gm Iv Premix) 3.375 gm in 50 mls @ 100 mls/hr IVPB Q6H CHEN; Protocol Last Admin: 12/01/18 05:19 Dose: 100 mls/hr Vancomycin HCl 1 gm/ Sodium (Chloride) 250 mls @ 166.7 mls/hr IVPB 1200 CHEN; Protocol Last Admin: 11/30/18 13:25 Dose: 166.7 mls/hr Dextrose (Dextrose 5% In Water 1000 Ml) 1,000 mls @ 0 mls/hr IV .Q0M PRN; Protocol PRN Reason: Hypoglycemia Protocol Insulin Human Regular (Novolin R) 0 unit SC ACHS CHEN; Protocol Last Admin: 11/30/18 21:11 Dose: Not Given Oxycodone/Acetaminophen (Percocet 5/325 Mg Tab) 1 tab PO Q4H PRN PRN Reason: Pain, moderate (4-7) Stop: 12/01/18 17:18 Last Admin: 11/29/18 15:35 Dose: 1 tab Saccharomyces Boulardii (Florastor) 250 mg PO BID CHEN Last Admin: 11/30/18 17:39 Dose: 250 mg - Labs Labs: 12/01/18 07:19 11/30/18 07:35 - Constitutional Appears: Non-toxic, No Acute Distress - Head Exam Head Exam: NORMAL INSPECTION - Eye Exam Eye Exam: Normal appearance - ENT Exam ENT Exam: Mucous Membranes Moist - Respiratory Exam Respiratory Exam: NORMAL BREATHING PATTERN - GI/Abdominal Exam GI & Abdominal Exam: Soft. absent: Rigid, Tenderness - Rectal Exam Additional comments: R perinal incision site approx 1 cm No drainage Packing in place Dressing clean, dry, intact - Extremities Exam Extremities Exam: absent: Pedal Edema - Neurological Exam Neurological Exam: Alert, Awake - Psychiatric Exam Psychiatric exam: Normal Affect, Normal Mood - Skin Skin Exam: Dry, Intact, Normal Color, Warm Assessment and Plan - Assessment and Plan (Free Text) Assessment: 48M s/p incision and drainage of right buttock abscess POD#3 Plan: - no further surgical intervention warranted at this time - please do daily packing changes w/ 1/2" width iodoform packing as explained to at bedside - cover area with dressing as explained to at bedside - abx per medicine - may pre-medicate with pain medicine prior to packing if pain intolerable - f/u w/ Dr. Guardado in 1 week outpatient - will d/w Dr. Guardado - Jovon Avila PGY1 <David Guardado B - Last Filed: 12/04/18 20:59> Objective - Vital Signs/Intake and Output Vital Signs (last 24 hours): Temp Pulse Resp BP Pulse Ox 97.9 F 69 20 109/66 95 12/01/18 15:00 12/01/18 15:00 12/01/18 15:00 12/01/18 15:00 12/01/18 15:00 - Labs Labs: 12/01/18 07:19 12/01/18 07:19 Attending/Attestation - Attestation I have personally seen and examined this patient.: Yes I have fully participated in the care of the patient.: Yes I have reviewed all pertinent clinical information, including history, physical exam and plan: Yes Notes (Text): Pt was seen and examined at bedside Agree with above note and assessment Pt is improving clinically f.u as out pt Po antibiotics f/u in [facility] Plan d.w pt in detail
[2018-12-01] MEDS: (Novolin R) Insulin Human Regular 100 units/ml vial SC SCH ×2 (08:07→12:02)
[2018-12-01] MEDS: Saccharomyces Boulardi 250 mg Cap PO SCH (10:07)
--- NOTE | 2018-12-01 13:05 | CP.PCM.DIS ---
<Deisy Dunaway - Last Filed: 12/01/18 13:29> Provider - Provider Date of Admission: 11/28/18 11:40 Attending physician: Mustapha Adkins DO Primary care physician: Courtney Consults: Surgery Time Spent in preparation of Discharge (in minutes): 45 Diagnosis - Discharge Diagnosis (1) Perineal abscess Status: Acute Priority: High (2) T2DM (type 2 diabetes mellitus) Status: Chronic Priority: Medium Hospital Course - Lab Results Lab Results: Micro Results 11/28/18 07:57 Blood Blood Culture - Preliminary NO GROWTH AFTER 3 DAYS 11/28/18 07:57 Blood Blood Culture - Preliminary NO GROWTH AFTER 3 DAYS 11/28/18 15:44 Other: Please Indicate Gram Stain - Final 11/28/18 15:44 Other: Please Indicate Wound Culture - Final Escherichia Coli Most Recent Lab Values WBC 8.0 K/uL (4.8-10.8) 12/01/18 07:19 RBC 5.68 Mil/uL (4.40-5.90) 12/01/18 07:19 Hgb 16.2 g/dL (12.0-18.0) 12/01/18 07:19 Hct 47.3 % (35.0-51.0) 12/01/18 07:19 MCV 83.2 fL (80.0-94.0) 12/01/18 07:19 MCH 28.4 pg (27.0-31.0) 12/01/18 07:19 MCHC 34.2 g/dL (33.0-37.0) 12/01/18 07:19 RDW 13.5 % (11.5-14.5) 12/01/18 07:19 Plt Count 321 K/uL (130-400) 12/01/18 07:19 MPV 7.7 fL (7.2-11.7) 12/01/18 07:19 Neut % (Auto) 49.1 % (50.0-75.0) L 12/01/18 07:19 Lymph % (Auto) 29.9 % (20.0-40.0) 12/01/18 07:19 [place] % (Auto) 11.4 % (0.0-10.0) H 12/01/18 07:19 Eos % (Auto) 8.8 % (0.0-4.0) H 12/01/18 07:19 Baso % (Auto) 0.8 % (0.0-2.0) 12/01/18 07:19 Neut # (Auto) 3.9 K/uL (1.8-7.0) 12/01/18 07:19 Lymph # (Auto) 2.4 K/uL (1.0-4.3) 12/01/18 07:19 [place] # (Auto) 0.9 K/uL (0.0-0.8) H 12/01/18 07:19 Eos # (Auto) 0.7 K/uL (0.0-0.7) 12/01/18 07:19 Baso # (Auto) 0.1 K/uL (0.0-0.2) 12/01/18 07:19 Sodium 137 mmol/L (132-148) 12/01/18 07:19 Potassium 4.6 mmol/L (3.6-5.2) 12/01/18 07:19 Chloride 101 mmol/L (98-107) 12/01/18 07:19 Carbon Dioxide 28 mmol/L (22-30) 12/01/18 07:19 Anion Gap 12 (10-20) 12/01/18 07:19 BUN 18 mg/dL (9-20) 12/01/18 07:19 Creatinine 1.1 mg/dL (0.8-1.5) 12/01/18 07:19 Est GFR ( Amer) > 60 12/01/18 07:19 Est GFR (Non-Af Amer) > 60 12/01/18 07:19 POC Glucose (mg/dL) 300 mg/dL (65-110) H 12/01/18 11:29 Random Glucose 132 mg/dL (75-110) H 12/01/18 07:19 Calcium 9.3 mg/dl (8.6-10.4) 12/01/18 07:19 Phosphorus 4.1 mg/dL (2.5-4.5) 11/29/18 07:31 Magnesium 2.1 mg/dL (1.6-2.3) 11/29/18 07:31 Total Bilirubin 1.0 mg/dL (0.2-1.3) 02/07/19 07:19 AST 27 U/L (17-59) 12/01/18 07:19 ALT 19 U/L (21-72) L 12/01/18 07:19 Alkaline Phosphatase 65 U/L (38-126) 12/01/18 07:19 Total Protein 7.5 g/dL (6.3-8.3) 12/01/18 07:19 Albumin 4.3 g/dL (3.5-5.0) 12/01/18 07:19 Globulin 3.3 gm/dL (2.2-3.9) 12/01/18 07:19 Albumin/Globulin Ratio 1.3 (1.0-2.1) 12/01/18 07:19 Lipase 56 U/L (23-300) 11/28/18 07:57 Urine Color Yellow (YELLOW) 11/28/18 08:38 Urine Clarity Clear (Clear) 11/28/18 08:38 Urine pH 6.0 (5.0-8.0) 11/28/18 08:38 Ur Specific [place] 1.009 (1.003-1.030) 11/28/18 08:38 Urine Protein Negative mg/dL (NEGATIVE) 11/28/18 08:38 Urine Glucose (UA) Normal mg/dL (Normal) 11/28/18 08:38 Urine Ketones Negative mg/dL (NEGATIVE) 11/28/18 08:38 Urine Blood Negative (NEGATIVE) 11/28/18 08:38 Urine Nitrate Negative (NEGATIVE) 11/28/18 08:38 Urine Bilirubin Negative (NEGATIVE) 11/28/18 08:38 Urine Urobilinogen Normal mg/dL (0.2-1.0) 11/28/18 08:38 Ur Leukocyte Esterase Neg Delia/uL (Negative) 11/28/18 08:38 Urine WBC (Auto) < 1 /hpf (0-5) 11/28/18 08:38 Urine RBC (Auto) < 1 /hpf (0-3) 11/28/18 08:38 - Hospital Course Hospital Course: Patient is a 48 year old male w/ PMH of DM2 admitted to hospital for evaluation of buttock pain. Patient states it started 3 days ago and the pain worsened until he decided to come to hospital. Patient stated he took some medicine at home does not remember which offered slight relief. Patient describes the pain to be located from the anus extending through perinal region towards medial thigh, worsened with movement, alleviated by rest, described as burning in nature, with 8/10 on pain scale at worst. Patient states he has had 3 episodes total with most recent one in July 2018. Denies fevers, chills, chest pain, sob, n/v, constipation or diarrhea, and dysuria. Denies blood during cleaning or pain with defecation. Abscess was discovered in peritoneum. Surgery was consulted and performed I&D in OR on day of admission. Patient was started on broad spectrum antibiotics. Wound packing and dressing was changed daily by surgery. Wound culture grew E. coli. Blood cultures remained negative. Patient's blood glucose was monitored throughout his hospitalization and was placed on insulin sliding scale. Upon discharge, patient's pain was well controlled. Vitals and labs were stable. Patient was afebrile and without leukocytosis. Surgery instructed the patient and his on daily packing changes. Patient was discharged on PO antibitoics and will follow-up with surgery as outpatient. Discharge Exam - Head Exam Head Exam: ATRAUMATIC, NORMAL INSPECTION - Eye Exam Eye Exam: EOMI, Normal appearance - ENT Exam ENT Exam: Mucous Membranes Moist - Neck Exam Neck exam: Normal Inspection - Respiratory Exam Respiratory Exam: Clear to PA & Lateral, NORMAL BREATHING PATTERN, UNREMARKABLE - Cardiovascular Exam Cardiovascular Exam: RRR, +S1, +S2 - GI/Abdominal Exam GI & Abdominal Exam: Soft. absent: Distended, Tenderness - Rectal Exam Additional comments: site of I&D at perineum with packing- no signs of active bleeding or drainage, tender to palpation - Extremities Exam Extremities exam: normal inspection - Neurological Exam Neurological exam: Alert, CN II-XII Intact, Oriented x3 - Psychiatric Exam Psychiatric exam: Normal Affect, Normal Mood - Skin Skin Exam: Normal Color, Warm Discharge Plan - Discharge Medications Prescriptions: Ciprofloxacin [Cipro] 500 mg PO BID #10 tab RX: Naproxen 250 mg PO BID PRN #10 tablet PRN Reason: Pain, Moderate (4-7) - Follow Up Plan Condition: IMPROVED Disposition: HOME/ ROUTINE Patient education suggested?: Yes Additional Instructions: Follow-up with your primary care provider, Dr. Valdez, within 3-5 days of discharge. Follow-up with surgery in 1 week. Perform daily packing changes with 1/2" width iodoform packing as explained to patient and by surgery team. You are being given a prescription for Cipro, an antibiotic. Please take two times daily for a total of 5 days. You may take the prescription Naproxen as needed for pain. You may also take [id number] pain medication. If symptoms recur or worsen, return to the nearest emergency room. Referrals: David Guardado MD [Staff Provider] - <Mustapha Adkins - Last Filed: 12/01/18 14:00> Provider - Provider Date of Admission: 11/28/18 11:40 Attending physician: Mustapha Adkins DO Hospital Course - Lab Results Lab Results: Micro Results 11/28/18 07:57 Blood Blood Culture - Preliminary NO GROWTH AFTER 3 DAYS 11/28/18 07:57 Blood Blood Culture - Preliminary NO GROWTH AFTER 3 DAYS 11/28/18 15:44 Other: Please Indicate Gram Stain - Final 11/28/18 15:44 Other: Please Indicate Wound Culture - Final Escherichia Coli Most Recent Lab Values WBC 8.0 K/uL (4.8-10.8) 12/01/18 07:19 RBC 5.68 Mil/uL (4.40-5.90) 12/01/18 07:19 Hgb 16.2 g/dL (12.0-18.0) 12/01/18 07:19 Hct 47.3 % (35.0-51.0) 12/01/18 07:19 MCV 83.2 fL (80.0-94.0) 12/01/18 07:19 MCH 28.4 pg (27.0-31.0) 12/01/18 07: MCHC 34.2 g/dL (33.0-37.0) 12/01/18 07: RDW 13.5 % (11.5-14.5) 12/01/18 07: Plt Count 321 K/uL (130-400) 12/01/18 07: MPV 7.7 fL (7.2-11.7) 12/01/18 07: Neut % (Auto) 49.1 % (50.0-75.0) L 12/01/18 07: Lymph % (Auto) 29.9 % (20.0-40.0) 12/01/18 07:19 [place] % (Auto) 11.4 % (0.0-10.0) H 12/01/18 07:19 Eos % (Auto) 8.8 % (0.0-4.0) H 12/01/18 07:19 Baso % (Auto) 0.8 % (0.0-2.0) 12/01/18 07:19 Neut # (Auto) 3.9 K/uL (1.8-7.0) 12/01/18 07: Lymph # (Auto) 2.4 K/uL (1.0-4.3) 12/01/18 07:19 [place] # (Auto) 0.9 K/uL (0.0-0.8) H 12/01/18 07:19 Eos # (Auto) 0.7 K/uL (0.0-0.7) 12/01/18 07:19 Baso # (Auto) 0.1 K/uL (0.0-0.2) 12/01/18 07:19 Sodium 137 mmol/L (132-148) 12/01/18 07:19 Potassium 4.6 mmol/L (3.6-5.2) 12/01/18 07:19 Chloride 101 mmol/L (98-107) 12/01/18 07:19 Carbon Dioxide 28 mmol/L (22-30) 12/01/18 07:19 Anion Gap 12 (10-20) 12/01/18 07:19 BUN 18 mg/dL (9-20) 12/01/18 07:19 Creatinine 1.1 mg/dL (0.8-1.5) 12/01/18 07:19 Est GFR ( Amer) > 60 12/01/18 07:19 Est GFR (Non-Af Amer) > 60 12/01/18 07:19 POC Glucose (mg/dL) 300 mg/dL (65-110) H 12/01/18 11:29 Random Glucose 132 mg/dL (75-110) H 12/01/18 07:19 Calcium 9.3 mg/dl (8.6-10.4) 12/01/18 07:19 Phosphorus 4.1 mg/dL (2.5-4.5) 11/29/18 07:31 Magnesium 2.1 mg/dL (1.6-2.3) 11/29/18 07:31 Total Bilirubin 1.0 mg/dL (0.2-1.3) 12/01/18 07:19 AST 27 U/L (17-59) 12/01/18 07:19 ALT 19 U/L (21-72) L 12/01/18 07:19 Alkaline Phosphatase 65 U/L (38-126) 12/01/18 07:19 Total Protein 7.5 g/dL (6.3-8.3) 12/01/18 07:19 Albumin 4.3 g/dL (3.5-5.0) 12/01/18 07:19 Globulin 3.3 gm/dL (2.2-3.9) 12/01/18 07:19 Albumin/Globulin Ratio 1.3 (1.0-2.1) 12/01/18 07:19 Lipase 56 U/L (23-300) 11/28/18 07:57 Urine Color Yellow (YELLOW) 11/28/18 08:38 Urine Clarity Clear (Clear) 11/28/18 08:38 Urine pH 6.0 (5.0-8.0) 11/28/18 08:38 Ur Specific [place] 1.009 (1.003-1.030) 11/28/18 08:38 Urine Protein Negative mg/dL (NEGATIVE) 11/28/18 08:38 Urine Glucose (UA) Normal mg/dL (Normal) 11/28/18 08:38 Urine Ketones Negative mg/dL (NEGATIVE) 11/28/18 08:38 Urine Blood Negative (NEGATIVE) 11/28/18 08:38 Urine Nitrate Negative (NEGATIVE) 11/28/18 08:38 Urine Bilirubin Negative (NEGATIVE) 11/28/18 08:38 Urine Urobilinogen Normal mg/dL (0.2-1.0) 11/28/18 08:38 Ur Leukocyte Esterase Neg Delia/uL (Negative) 11/28/18 08:38 Urine WBC (Auto) < 1 /hpf (0-5) 11/28/18 08:38 Urine RBC (Auto) < 1 /hpf (0-3) 11/28/18 08:38 Attending/Attestation - Attestation I have personally seen and examined this patient.: Yes I have fully participated in the care of the patient.: Yes I have reviewed all pertinent clinical information, including history, physical exam and plan: Yes Notes (Text): 12/01/18 13:58 Medical attending: Patient was seen and examined by me with the medical massage therapist. I reviewed the above note by the resident and agree with the above The patient was not in any acute distress, he will be discharged home later today The patient will be on abx and pain medcations - he will need follow up with surgery Mustapha Adkins
[2018-12-01 16:01] VITALS: BP 109/66; PULSE 69; TEMP 97.9
== END 2018-12-01 16:34 | disposition home or self-care (01) ==
LOC: C.ER 06:31 → C.9E 11:40 → C.3T 12:20
PROVIDERS: ADMIT Hospitalist; ATTEND Hospitalist
DX: L02.31 Cutaneous abscess of buttock (principal); L02.215 Cutaneous abscess of perineum; K61.1 Rectal abscess; B96.20 Unspecified Escherichia coli [E. coli] as the cause of diseases classified elsewhere; E10.9 Type 1 diabetes mellitus without complications; K61.0 Anal abscess; Z79.4 Long term (current) use of insulin
CPT/HCPCS: 11042; 36415; 72193; 80053; 81001; 82948; 83690; 83735; 84100; 85025; 85610; 85730; 87040; 87070; 87181; 96361; 96365; 96366; 96367; 96368; 96375; 99284; G0378; J1885; J2250; J2543; J2704; J3010; J3370; J7030; J7050; Q9967